=== PATIENT | male | born 1980 | race Caucasian/White ===

== ENCOUNTER 2022-04-11 12:07 | Inpatient (IN) ==
[2022-04-11] MEDS ORDERED: HYDROmorphone INJ 1 MG/ML SYRINGE IV STA (12:26)
[2022-04-11] MEDS ORDERED: KETOROLAC TROMETHAMINE 15 MG/ML VIAL IV ONE (12:26)
--- NOTE | 2022-04-11 12:30 | Emergency Department Note ---
Impression & Plan Lumbar radiculopathy, Back pain, Sciatica ED Provider Note NAME: BRIANDA WILSON AGE: 41 SEX: M : 1980 ARRIVES VIA: Walk-In INFORMANT: Patient ED PROVIDER(S): Joe Kevin DO CHIEF COMPLAINT: lower back pain HPI: Patient is a 41-year-old male who presents the ER for left lower back pain that radiates down the leg with numbness in the foot and left garcia. No symptoms started about 4 to 6 weeks ago. Has been significantly worsening specifically over the past week. He is done chiropractic therapy as well as steroid injections in the back and pain has been getting worse. He has noticed he is been getting increased weakness of the left lower leg. He had MRI this past Saturday as an outpatient at [facility]. He has been following with Andrea and Dr. Kvng card. They believe that these symptoms are likely secondary to L4. Denies any dysuria urgency or frequency. He is having trouble urinating. ROS: See above HPI for pertinent positives & negatives. A total of 10 systems reviewed and were otherwise negative. PAST MEDICAL HISTORY:See Below PAST SURGICAL HISTORY:See Below FAMILY HISTORY:See Below SOCIAL HISTORY:See Below HOME MEDICATIONS:See Below ALLERGIES:See Below VITALS:See Below PHYSICAL EXAMINATION: GENERAL: Sitting up in bed, alert, well appearing, well nourished, no distress, non-toxic EYE EXAM: normal conjunctiva. OROPHARYNX: mucous membranes are moist NECK: supple, no nuchal rigidity, no adenopathy, non-tender LUNGS: Clear to auscultation. Normal chest wall mechanics HEART: no murmurs, S1 normal and S2 normal ABDOMEN: abdomen soft, non-tender, normo-active bowel sounds, no masses, no rebound or guarding. BACK: Back is symmetrical on inspection and there is no deformity, no midline tenderness, no CVA tenderness. UPPER EXTREMITIES: upper extremities are grossly normal. LOWER EXTREMITIES: Flexion and extension of the hips, knees, ankles, and EHL 5/5 on the right. 4 out of 5 on the left.. Gross sensation is intact. DPs are 2/4 bilateral. Patellar and Achilles reflexes are 2/4 bilateral NEURO EXAM: Normal sensorium MEDICAL DECISION MAKING: Patient is a 41-year-old male who presents ER for back pain. IV was established blood was obtained. Labs show hemoglobin of 19 likely secondary to dehydration. BMP was unremarkable. COVID-negative. Imaging was not repeated as he just had an MRI which showed an L4 disc. Discussed with Dr. Ryder he is following this patient he recommends admission and he evaluate the patient at bedside. He was given IV Dilaudid. Patient was admitted for the OR. Triage Nursing notes reviewed. Limited review of prior medical records performed Vital Signs: reviewed and remarkable for HTN Differential diagnosis: Differential diagnoses includes but is not limited to lumbar radiculopathy, kidney stone, muscle strain, facture, cauda equina, mass, and disc herniation. ER treatment provided: See below Diagnostics interpreted by me: ECG: none Cardiac Monitoring: An order was placed for continuous cardiac monitoring. The monitor shows a rate of 65 with sinus rhythm. Laboratory studies: As stated above and show below. 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 Beliefs That Will Affect Care: None Current Living Situation: Other Current Living Situation Comment: Significant other (Iris) and son Other Information That Helps Us Care for You: No Feels Safe at Home: Yes Safety Concerns: Feels Safe At This Time Assistive Devices: None Allergies Allergies Allergy/AdvReac Type Severity Reaction Status Date / Time No Known Allergies Allergy Verified 04/11/22 13:43 Home Meds Home Medications Medication Instructions Recorded Confirmed prednisone 20 mg tablet 60 mg PO BID MDD 120 MG 04/08/22 04/11/22 Previous Rx's Medication Instructions Recorded oxycodone 5 mg tablet 5 mg PO Q4 PRN #20 tab 04/08/22 Results & Data (ED) Vital Signs Vital Signs - 24 hr 04/11/22 12:08 04/11/22 12:56 04/11/22 12:58 Temperature 37.1 C Temperature Source Temporal Artery Scan Pulse Rate 101 H Pulse Rate [Apical] 78 Pulse Rhythm [Apical] Regular Pulse Strength Normal Respiratory Rate 22 16 Respiratory Effort / Characteristics Non-Labored Spontaneous Respiratory Depth Normal Normal Blood Pressure 162/107 H Blood Pressure [Left Arm] 177/119 H Blood Pressure Mean 125 Blood Pressure Mean [Left Arm] 138 Blood Pressure Position Sitting Pulse Oximetry 96 94 95 Oxygen Delivery Method Room Air Room Air Room Air Sepsis Recent Fever Within 48 Hours No Sepsis New/Unexplained Change in Mental Status N/A Sepsis Action Taken by Nursing No Action Required Laboratory Data Result diagrams: 04/11/22 12:39 04/11/22 12:39 Lab Results 04/11/22 04/11/22 Range/Units 12:39 12:39 WBC 10.40 (4.8-10.8) K/uL RBC 5.70 (4.7-6.1) M/uL Hgb 19.3 H (14.0-18.0) g/dL Hct 54.1 H (42-52) % MCV 94.9 (80-100) fL MCH 33.9 (25-34) pg MCHC 35.7 (32-36) g/dL RDW Std Deviation 44.7 (36.4-46.3) fL RDW Coeff of Danielle 13.0 (11.5-14.5) % Plt Count 171 (130-400) K/uL MPV 11.7 H (7.4-10.4) fL Immature Gran % (Auto) 0.5 % Neut % (Auto) 68.7 % Lymph % (Auto) 19.4 % Heard % (Auto) 11.2 % Eos % (Auto) 0.1 % Baso % (Auto) 0.1 % Neut # (Auto) 7.15 H (1.4-6.5) K/uL Lymph # (Auto) 2.02 (1.2-3.4) K/uL Heard # (Auto) 1.16 H (0.11-0.59) K/uL Eos # (Auto) 0.01 (0-0.5) K/uL Baso # (Auto) 0.01 (0-0.2) K/uL Immature Gran # (Auto) 0.05 H (0.00-0.02) K/uL Sodium 136 (136-145) mmol/L Potassium 4.3 (3.5-5.1) mmol/L Chloride 101 (98-107) mmol/L Carbon Dioxide 30 (21-32) mmol/L Anion Gap 5 (3-11) BUN 30 H (6-23) mg/dl Creatinine 1.08 (0.6-1.4) mg/dl Est Cr Clr Drug Dosing 113.7 ml/min Est GFR ( Amer) 98.3 ml/min Est GFR (Non-Af Amer) 84.8 ml/min BUN/Creatinine Ratio 27.8 H (10-20) Glucose 90 (70-99(Fasting)) mg/dl Calcium 9.9 (8.5-10.1) mg/dl Administered Medications Hydromorphone HCl (Hydromorphone Inj 1 Mg/Ml Syringe) 1 mg IV Q3H PRN PRN Reason: severe pain (scale 7-10) Stop: 04/25/22 13:49 Last Admin: 04/11/22 14:23 Dose: 1 mg Documented by: [id number] Lactated Ringer's (Lr) 1,000 mls @ 75 mls/hr IV .[id number] SHANNON Stop: 05/11/22 13:59 Last Admin: 04/11/22 16:30 Dose: 75 mls/hr Documented by: [id number] Infusion: 04/11/22 16:30 Dose: 0 mls/hr Documented by: [id number] Admin: 04/11/22 14:22 Dose: 75 mls/hr Documented by: [id number] Acetaminophen ([facility]) 1,000 mg in 100 mls @ 400 mls/hr IV Q8H PRN PRN Reason: Pain Rating 1-3 & Pre PT Stop: 04/12/22 13:50 Last Infusion: 04/11/22 16:57 Dose: 0 mls/hr Documented by: [id number] Admin: 04/11/22 16:32 Dose: 400 mls/hr Documented by: [id number] Oxycodone HCl (Oxycodone Hcl Ir 5 Mg Tab (Immediate Release)) 5 - 10 mg PO Q4H PRN PRN Reason: mod to severe pain Stop: 04/25/22 13:49 Last Admin: 04/11/22 17:31 Dose: 10 mg Documented by: [id number] Discontinued Medications Hydromorphone HCl (Hydromorphone Inj 1 Mg/Ml Syringe) 1 mg IV NOW STA Stop: 04/11/22 12:27 Last Admin: 04/11/22 12:48 Dose: 1 mg Documented by: [id number] Ketorolac Tromethamine (Ketorolac Tromethamine 15 Mg/Ml Vial) 15 mg IV NOW ONE Stop: 04/11/22 12:27 Last Admin: 04/11/22 12:48 Dose: 15 mg Documented by: [id number] Discharge Plan Visit Data Chief Complaint: Back Injury/Pain Stated Complaint: LOW BACK PAIN ED Provider: Joe Kevin Discharge Problem: Lumbar radiculopathy, Back pain, Sciatica Patient Disposition: Admitted As Inpatient Discharge Instructions Interventions: ED Discharge Assessment Last Done: 04/11/22 15:14 Discharge Problem: Back pain Qualifiers: Back pain location: low back pain Chronicity: acute Back pain laterality: unspecified Sciatica presence: unspecified whether sciatica present Qualified Code(s): M54.50 - Low back pain, unspecified Sciatica Qualifiers: Laterality: left Qualified Code(s): M54.32 - Sciatica, left side
[2022-04-11 13:13] LABS: Basophils # (auto) 0.01 K/uL (0-0.2); Basophils % (auto) 0.1 %; Eosinophils # (auto) 0.01 K/uL (0-0.5); Eosinophils % (auto) 0.1 %; Hematocrit (blood only) 54.1 % (42-52); Hemoglobin 19.3 g/dL (14.0-18.0); Immature Granulocytes # (auto) 0.05 K/uL (0.00-0.02); Immature Granulocytes % (auto) 0.5 %; Lymphocytes # (auto) 2.02 K/uL (1.2-3.4); Lymphocytes % (auto) 19.4 %; Mean Corpuscular Hemoglobin 33.9 pg (25-34); Mean Corpuscular Hgb Conc 35.7 g/dL (32-36); Mean Corpuscular Volume 94.9 fL (80-100); Mean Platelet Volume 11.7 fL (7.4-10.4); Monocytes # (auto) 1.16 K/uL (0.11-0.59); Monocytes % (auto) 11.2 %; Neutrophils # (auto) 7.15 K/uL (1.4-6.5); Neutrophils % (auto) 68.7 %; Platelet Count 171 K/uL (130-400); RDW Standard Deviation 44.7 fL (36.4-46.3)
[2022-04-11 13:28] LABS: BUN Creatinine Ratio 27.8 (10-20); Calcium 9.9 mg/dl (8.5-10.1); Creatinine Clr Calc Pharmacy 113.7 ml/min; Est GFR (African American) 98.3 ml/min; Est GFR (Non-African American) 84.8 ml/min; Potassium 4.3 mmol/L (3.5-5.1)
[2022-04-11] MEDS ORDERED: ONDANSETRON 4 MG OD TAB PO PRN (13:50)
[2022-04-11] MEDS ORDERED: HYDROmorphone INJ 0.5 MG/0.5 ML SYR IV PRN (13:50)
[2022-04-11] MEDS ORDERED: LORazepam 2 MG/1 ML VIAL IV PRN (13:50)
[2022-04-11] MEDS ORDERED: oxyCODONE HCL IR 5 MG TAB (IMMEDIATE RELEASE) PO PRN (13:50)
[2022-04-11] MEDS ORDERED: MAGNESIUM HYDROXIDE SUSP 30 ML UDC PO PRN (13:50)
[2022-04-11] MEDS ORDERED: traMADol HCL 50 MG TABLET PO PRN (13:50)
[2022-04-11] MEDS ORDERED: ACETAMINOPHEN 500 MG TAB PO PRN (13:50)
[2022-04-11] MEDS ORDERED: METOCLOPRAMIDE HCL INJ 5 MG/ML 2 ML VIAL IV PRN (13:50)
[2022-04-11] MEDS ORDERED: PROMETHAZINE HCL 12.5 MG in SODIUM CHLORIDE 0.9% 50 ML IV PRN (13:50)
[2022-04-11] MEDS ORDERED: diphenhydrAMINE Capsule 25 MG CAP PO PRN (13:50)
[2022-04-11] MEDS ORDERED: ONDANSETRON INJ 2 MG/ML 2 ML VIAL IV PRN (13:50)
[2022-04-11] MEDS ORDERED: NALOXONE HCL 0.4 MG/1 ML VIAL/CARP IV PRN (13:50)
[2022-04-11] MEDS ORDERED: ACETAMINOPHEN 1,000 MG/100 ML VIAL IV PRN (13:50)
--- NOTE | 2022-04-11 14:01 | History & Physical Report ---
Date of Service April 11, 2022 Assessment & Plan (1) Lumbar radiculopathy: Plan: Is a 41-year-old gentleman we are admitting to Dr. Ryder service. He has had a progressive decline over the past several days with worsening bilateral lower extremity pain and weakness. He has neurological deficit affecting the left lower extremity. He notes new urinary retention. We will admit him for pain control and make him n.p.o. after midnight. Plan is to proceed with surgical intervention in the form of posterior lumbar decompression and instrumented fusion of L4-5, L5-S1. Risk, benefits, pros cons and alternatives were in detail. Patient wants to proceed with above-mentioned planning as soon as possible. History of Present Illness Chief Complaint: Low back pain, left greater than right lower extremity pain and weakness, urinary retention Primary Care Provider: Emigdio Argueta MD Is a pleasant 41-year-old gentleman who has been under care for the past week or so. He has had ongoing symptoms for the past 4 to 6 weeks but really declined over the past 10 days. He was in the emergency room 4 days ago for jennie e complaints. He has had multiple rounds of oral steroids which provide very modest relief. He is Ghassan Aleman PA-C one of our orthospine PAs last week with subsequent follow-up today ago to review his MRI. 2 days ago he received his first lumbar injection by Dr. Quesada. He notes no improvement. He is also seen Dr. Mccord last week again no real improvement. Patient was evaluated by ghassan vasquez and Dr. Quesada today and decided to present to the ER for surgical consultation. Patient currently has pain his lower back going down both legs along the posterior lateral thighs, posterior lateral calf to his feet. Left lower extremity is worse than right. He has been ambling independently. He has been on a couple rounds of steroids. When he was in the ER 3 days ago they gave him Oxy IR which he has been taking. He notes some urinary retention but no perineal numbness. Allergies Allergy/AdvReac Type Severity Reaction Status Date / Time No Known Allergies Allergy Verified 04/11/22 13:43 Home Medications Medication Instructions Recorded Confirmed Type oxycodone 5 mg tablet 5 mg PO Q4 PRN #20 tab 04/08/22 04/11/22 Rx prednisone 20 mg tablet 60 mg PO BID MDD 120 MG 04/08/22 04/11/22 History Past Med/Surg History Medical History No known health problems Surgical History History of tooth extraction Social History Smoking Status: Never smoker Second Hand Exposure: No; Do You Dip or Chew Tobacco: No; Tobacco Cessation Education Requested by Patient: No Hx Alcohol Use: No Hx Substance Use: No Preferred Language: Arabic Communication Ability: Effective Ramp Lead Required: No Beliefs That Will Affect Care: None Current Living Situation: Other Current Living Situation Comment: Significant other (Iris) and son Other Information That Helps Us Care for You: No Feels Safe at Home: Yes Safety Concerns: Feels Safe At This Time Assistive Devices: None Review of Systems Review of Systems: All systems reviewed & are unremarkable except as noted in HPI & below Physical Exam Physical Exam: Patient seen in the ER b 6 Alert and oriented x3 Moderately uncomfortable but cooperative with exam Has difficulty standing up due to pain 4 out of 5 left EHL and dorsiflexion compared to 5/5 right EHL and dorsiflexion Breakaway weakness over the left quadricep, strength intact on the right Positive straight leg raise on the left Constitutional: WD/WN, vitals as above Eyes: normal visual kelly by confrontation ENMT: external ear and nose normal, oropharynx normal Neck: normal visual inspection Respiratory: normal respiratory effort Cardiovascular: Extremities: normal capillary refill Gastrointestinal (Abdomen): Inspection/Auscultation: abdomen normal to inspection Musculoskeletal: Spine: + straight leg raise positive Extremities: + abnormal strength Skin: no rashes, warm and dry Neurologic: normal touch/pain/proprioception, moves all extremities and + focal motor deficit Psychiatric: A+Ox3, euthymic affect Eye Contact: good eye contact Speech: normal rate/rhythm/volume of speech Results & Data Results & Data ([facility]) Vital Signs (Past 12 Hours) Vital Signs Temp Pulse Pulse Resp BP BP Pulse Ox 04/11/22 12:58 95 04/11/22 12:56 78 16 177/119 H 94 04/11/22 12:08 37.1 C 101 H 22 162/107 H 96 Code Status & VTE Plan VTE Prophylaxis Plan VTE Prophylaxis will be ordered: Yes
[2022-04-11] MEDS: LACTATED RINGER'S 1,000 ML IV SCH ×2 (14:22→16:30)
[2022-04-11] MEDS: HYDROmorphone INJ 1 MG/ML SYRINGE IV PRN ×2 (14:23→22:31)
[2022-04-11] MEDS ORDERED: DOCUSATE SODIUM/SENNA 50/8.6MG TAB PO SCH (21:00)
[2022-04-12] MEDS: HYDROmorphone INJ 1 MG/ML SYRINGE IV PRN ×7 (01:50→16:04)
[2022-04-12] MEDS: LACTATED RINGER'S 1,000 ML IV SCH ×3 (04:52→23:15)
[2022-04-12] MEDS ORDERED: ceFAZolin 2000MG 2,000 MG/15 ML SYR IV SCH (06:00)
[2022-04-12 06:39] LABS: Appearance Urine Cloudy (Clear); Bacteria Urine Automated Negative (Negative); Bilirubin Urine Negative (Negative); Blood Urine Negative (Negative); Color Urine Yellow; Epithelial Cell Urine Auto 0-5 /lpf (0-5); Glucose Urine UA Negative (Negative); Ketones Urine Negative (Negative); Leukocyte Esterase Urine Negative (Negative); Nitrite Urine Negative (Negative); Specific Gravity Urine 1.023 (1.000-1.030); Urobilinogen Urine Negative (Negative); pH Urine 7.5 (4.5-7.5)
[2022-04-12 06:40] LABS: Protein Urine 1+ (Negative)
--- NOTE | 2022-04-12 06:56 | Anesthesiology Consultation ---
Date of Service April 12, 2022 Assessment & Plan (1) Encounter for pre-operative examination: Chart Review Chart Review: carpentry supervisor initiated History Surgery Operation Date: 04/12/22 12:30 Proposed Procedures p L4-L5 and L5-S1 Posterior Lumbar Decompression and Fusion - Zak Ryder DO Height/Weight Height: 6 ft 2 in Weight: 100 kg Allergies Allergy/AdvReac Type Severity Reaction Status Date / Time No Known Allergies Allergy Verified 04/11/22 13:43 Medications Home Medications Medication Instructions Recorded Confirmed Last Taken oxycodone 5 mg tablet 5 mg PO Q4 PRN #20 tab 04/08/22 04/11/22 04/11/22 10:00 10 mg prednisone 20 mg tablet 60 mg PO BID MDD 120 MG 04/08/22 04/11/22 04/10/22 Active Medications Generic Name Dose Route Start Last Admin Trade Name Freq PRN Reason Stop Dose Admin Hydromorphone HCl 1 mg 04/11/22 13:50 04/12/22 04:49 Hydromorphone Inj 1 Mg/Ml Syringe IV 04/25/22 13:49 1 mg Q3H PRN Administration severe pain (scale 7-10) Lactated Ringer's 1,000 mls @ 75 mls/hr 04/11/22 14:00 04/12/22 04:52 Lr IV 05/11/22 13:59 75 mls/hr .[id number] SHANNON Administration Acetaminophen 1,000 mg in 100 mls @ 400 mls/hr 04/11/22 13:50 04/11/22 16:57 Ofirmev IV 04/12/22 13:50 Infused Q8H PRN Infusion Pain Rating 1-3 & Pre PT Oxycodone HCl 5 - 10 mg 04/11/22 13:50 04/11/22 17:31 Oxycodone Hcl Ir 5 Mg Tab (Immediate Release) PO 04/25/22 13:49 10 mg Q4H PRN Administration mod to severe pain Senna/Docusate Sodium 2 tab 04/11/22 21:00 04/11/22 22:31 Docusate Sodium/Senna 50/8.6mg Tab PO 05/11/22 20:59 2 tab HS SHANNON Administration NPO Date Last Intake of Fluids: 04/11/22 Time Last Intake of Fluids: 23:30 Past Medical History Medical History No known health problems Past Surgical History Surgical History History of tooth extraction Social History Smoking Status: Never smoker Do You Dip or Chew Tobacco: No Hx Alcohol Use: No Hx Substance Use: No substance use type: does not use Physical Exam Vital Signs Last Vital Signs Temp 97.7 F 04/11/22 22:11 Pulse 57 L 04/11/22 22:11 Resp 18 04/11/22 22:11 BP 161/82 H 04/11/22 22:11 Pulse Ox 95 04/11/22 22:11 Testing Laboratory Results 04/11/22 12:39 04/11/22 12:39 Urine Color Yellow 04/12/22 05:55 Urine Appearance Cloudy (Clear) A 04/12/22 05:55 Urine pH 7.5 (4.5-7.5) 04/12/22 05:55 Ur Specific [place] 1.023 (1.000-1.030) 04/12/22 05:55 Urine Protein 1+ (Negative) H 04/12/22 05:55 Urine Glucose (UA) Negative (Negative) 04/12/22 05:55 Urine Ketones Negative (Negative) 04/12/22 05:55 Urine Nitrite Negative (Negative) 04/12/22 05:55 Ur Leukocyte Esterase Negative (Negative) 04/12/22 05:55 Urine WBC (Auto) 1-5 /hpf (0-5) 04/12/22 05:55 Urine RBC (Auto) 5-10 /hpf (0-4) H 04/12/22 05:55 U Hyaline Cast (Auto) 1-5 /lpf (0-5) 04/12/22 05:55 U Epithel Cells (Auto) 0-5 /lpf (0-5) 04/12/22 05:55 Urine Bacteria (Auto) Negative (Negative) 04/12/22 05:55 Laboratory Tests 04/11/22 Unknown SARS-CoV-2, RNA, NAAT NEGATIVE
[2022-04-12] MEDS ORDERED: ONDANSETRON INJ 2 MG/ML 2 ML VIAL IV PRN ×2 (12:16→17:00)
[2022-04-12] MEDS ORDERED: ePHEDrine sulfate 50 MG/ML AMP IV PRN (12:16)
[2022-04-12] MEDS ORDERED: ATROPINE SULFATE 0.1 MG/ML 10ML SYR IV PRN (12:16)
[2022-04-12] MEDS ORDERED: ROCURONIUM BROMIDE 10 MG/ML 5 ML VIAL IV ONE ×10 (12:26→14:48)
[2022-04-12] MEDS ORDERED: MIDAZOLAM HCL 1 MG/ML 2ML VIAL ONE (12:26)
[2022-04-12] MEDS ORDERED: PROPOFOL IV EMULSION 10 MG/ML 20 ML VIAL IV ONE ×2 (12:26→13:22)
[2022-04-12] MEDS ORDERED: fentaNYL citrate 100 MCG/2 ML VIAL ONE (12:26)
--- NOTE | 2022-04-12 12:33 | History & Physical Bridge Note ---
Date of Service April 12, 2022 History & Physical Bridge Note I have examined the patient, reviewed the History & Physical and in the interval since the performance of the History & Physical I have noted the following changes of clinical significance: no changes noted Lumbar decompression and fusion L4-S1
[2022-04-12] MEDS ORDERED: LIDOCAINE 2% 2 ML VIAL/AMP(20MG/ML) INFIL ONE ×3 (12:35→12:48)
[2022-04-12] MEDS ORDERED: ONDANSETRON INJ 2 MG/ML 2 ML VIAL ONE (12:35)
[2022-04-12] MEDS ORDERED: DEXAMETHASONE SOD INJ 4 MG/ML VIAL ONE ×3 (12:35→12:48)
[2022-04-12] MEDS ORDERED: EPINEPHrine INJ 1 MG/ML AMP ONE (12:46)
[2022-04-12] MEDS ORDERED: BUPIVACAINE 0.5 % 5 MG/1 ML MPF 30ML VIAL ONE (12:46)
[2022-04-12] MEDS ORDERED: ceFAZolin 330 MG/ML 1 GM VIAL ONE (12:46)
[2022-04-12] MEDS ORDERED: REMIFENTANIL HCL 1 MG VIAL ONE (12:49)
[2022-04-12] MEDS ORDERED: KETAMINE 50 MG/5 ML SYRINGE ONE (12:50)
[2022-04-12] MEDS ORDERED: ePHEDrine sulfate 50 MG/ML AMP ONE (13:57)
[2022-04-12] MEDS ORDERED: PHENYLEPHRINE HCL 10 MG/ML VIAL ONE (13:57)
[2022-04-12] MEDS ORDERED: FLOSEAL HEMOSTATIC MATRIX 10ML TOP ONE (14:02)
[2022-04-12] MEDS ORDERED: GLYCOPYRROLATE 0.2 MG/ML VIAL ONE (14:46)
[2022-04-12] MEDS ORDERED: NEOSTIGMINE METHYLSULFATE 1 MG/ML 10ML VIAL ONE (14:46)
--- NOTE | 2022-04-12 14:56 | Operative Report ---
Post Operative Report Pre & Post Diagnosis Operation Date: 04/12/22 12:30 Pre-Op Diagnosis: Low back pain, left greater than right lower extremity pain and weakness, urinary retention Post-Op Diagnosis: Low back pain, left greater than right lower extremity pain and weakness, urinary retention I identified the patient and participated in the time-out.: Yes Procedure Operation Date: 04/12/22 12:30 Actual Procedures #1 lumbar decompression with bilateral medial facetectomies and foraminotomies L3-L4 L4-5 and L5-S1. #2 posterior spinal fusion L4-L5 L5-S1. #3 placement posterior instrumentation L4-L5 L5-S1. #4 interbody fusion L4-L5 L5-S1. #5 placement of Spira 15 x 26 mm cage at L4-5 and 13 x 26 mm cage L5-S1. #6 placement locally harvested morselized autograft in the posterior gutters. #7 placement of I factor combined with V toss in the posterior lateral gutters and interbody spaces. Surgeon Zak Ryder, DO Supervisor [place] Veronica Estrada Estimated Blood Loss 100 Findings Consistent with Post-Op Diagnosis Specimens None Indications This is a 41-year-old male who presents with steady decline in status with severe bilateral leg pain left greater than right creating radiculopathy and urinary tension. In light of his presentation and significant findings here for urgent decompression fusion. Description of Procedure Patient was met with identified informed consent obtained. Patient was was then taken to the operative suite underwent intubation placed in a prone position the Severiano table atop the Singh frame. All bony prominences well-padded eyes inspected to ensure no external pressure placed upon them. This point the lumbar spine was prepped and draped in the normal sterile fashion. Sharp dissection with the assistance of Bovie cautery was performed down to and exposing the lamina and transverse processes of L4-5 and sacral ala bilaterally. From caudal to cephalad fashion complete laminectomy of L5 L4 partial laminectomy L3 was performed including bilateral medial facetectomies and foraminotomies addressing all neural compression and severe foraminal disease. Evidence of massive disc herniation particular on the left L4-L5 level was notified with significant cord treatment of the exiting nerve and traversing nerve roots. It was removed in its entirety. Pedicle screws then placed in L4- L5 and S1 levels bilaterally with assistance of fluoroscopy and the proper sized hussein placed. By way of a transforaminal approach and left complete discectomy of L5-S1 was performed endplates curetted to subcortical bone bone and a 13 x 26 mm spiral cage filled with I factor tapped in position. Then proceeded to L for L5 again by way of a transforaminal approach and left complete discectomy was performed endplates curetted to subcortical bleeding bone and a 15 x 26 mm spiral cage filled with I factor tapped in position. The rods were then co mpressed locked in final position bilaterally. The transverse processes of L4- L5 and sacral ala burred to subcortically bone. I factor combined with V toss and locally harvested morselized autograft was placed in the posterior gutters. 15 round ALEKSANDR drain inserted. The incision was then closed with 1 Vicryl the fascia 2-0 Vicryl subcutaneously and 4 Monocryl for final skin closure. Steri- Strip sterile dressings placed. Patient waken taken PACU stable condition. Please note spinal cord monitoring was utilized at the procedure no changes noted. Lastly Veronica Estrada was present out the entire surgery involved the patient positioning complex portions of the surgery and final skin closure. I attest to the content of the Intraoperative Record and any orders documented t herein. Any exceptions are noted below.
[2022-04-12] MEDS: fentaNYL citrate 100 MCG/2 ML VIAL IV PRN ×4 (15:25→15:42)
--- NOTE | 2022-04-12 15:29 | Fluoroscopy Report ---
FL lumbar spine 2-3V CLINICAL HISTORY: L4-L5, L5-S1 Decompression/fusion COMPARISON STUDY: None. FLUOROSCOPY TIME: 25 seconds. FINDINGS: 2 fluoroscopic spot images of the lumbar spine demonstrate posterior decompression fusion f rom L4 through S1 with pedicle screws and rods. The hardware appears intact. Disc spacers are placed. IMPRESSION: Fluoroscopic assistance provided for L4-S1 posterior decompression and fusion ACT 112: Negative or not required by law. Electronically signed by: Gianfranco Randle M.D. 04/12/2022 3:28 PM
--- NOTE | 2022-04-12 15:59 | Anesthesiology Progress Note ---
Date of Service April 12, 2022 Anesthesia Post Procedure Vital Signs Vital Signs: Temp Pulse Pulse Resp BP BP Pulse Ox 04/12/22 15:55 49 L 12 144/76 H 94 04/12/22 15:45 45 L 13 145/80 H 97 04/12/22 15:35 48 L 11 L 153/80 H 98 04/12/22 15:25 56 L 18 150/81 H 97 04/12/22 15:15 98.2 F 56 L 16 148/88 H 97 04/12/22 15:00 97.9 F 92 H 18 181/82 H 94 04/12/22 11:53 98.8 F 85 16 160/99 H 94 04/12/22 07:37 97.5 F L 59 L 16 161/94 H 97 04/11/22 22:11 97.7 F 57 L 18 161/82 H 95 Pain Intensity Back: Pain Intensity: 6 Transfer of Care Handoff Completed per policy Notes Mental Status: alert / awake / arousable and participated in evaluation Patient Amnestic to Procedure: Yes Nausea / Vomiting: adequately controlled Pain: adequately controlled Airway Patency, RR, SpO2: stable & adequate BP & HR: stable & adequate Hydration State: stable & adequate Anesthetic Complications: no major complications apparent and Pt Satisfied with anesthetic care
[2022-04-12] MEDS ORDERED: SOD PHOSPHATE/SOD BIPHOSPHATE ENEMA 132 ML BTL PR PRN (17:00)
[2022-04-12] MEDS ORDERED: FAMOTIDINE 20 MG TAB PO PRN (17:00)
[2022-04-12] MEDS ORDERED: ONDANSETRON 4 MG OD TAB PO PRN (17:00)
[2022-04-12] MEDS ORDERED: HYDROmorphone INJ 1 MG/ML SYRINGE IV PRN (17:00)
[2022-04-12] MEDS ORDERED: LORazepam 2 MG/1 ML VIAL IV PRN (17:00)
[2022-04-12] MEDS ORDERED: hydrOXYzine HCl 25 MG TAB PO PRN (17:00)
[2022-04-12] MEDS ORDERED: ACETAMINOPHEN 500 MG TAB PO PRN (17:00)
[2022-04-12] MEDS ORDERED: DO NOT ADMINISTER FLU VACCINE PRN (17:00)
[2022-04-12] MEDS ORDERED: ACETAMINOPHEN 1,000 MG/100 ML VIAL IV PRN (17:00)
[2022-04-12] MEDS ORDERED: diphenhydrAMINE Capsule 25 MG CAP PO PRN (17:00)
[2022-04-12] MEDS ORDERED: HYDROmorphone INJ 0.5 MG/0.5 ML SYR IV PRN (17:00)
[2022-04-12] MEDS ORDERED: DO NOT ADMINISTER PNEUMOCOCCAL VACCINE PRN (17:00)
[2022-04-12] MEDS ORDERED: NALOXONE HCL 0.4 MG/1 ML VIAL/CARP IV PRN (17:00)
[2022-04-12] MEDS ORDERED: MAGNESIUM HYDROXIDE SUSP 30 ML UDC PO PRN (17:00)
[2022-04-12] MEDS ORDERED: bisacodyL 10 MG SUPP PR PRN (17:00)
[2022-04-12] MEDS ORDERED: PROMETHAZINE HCL 12.5 MG in SODIUM CHLORIDE 0.9% 50 ML IV PRN (17:00)
[2022-04-12] MEDS ORDERED: ALUMINUM/MAGNESIUM SUSP 30 ML UDC PO PRN (17:00)
[2022-04-12] MEDS ORDERED: METOCLOPRAMIDE HCL INJ 5 MG/ML 2 ML VIAL IV PRN (17:00)
[2022-04-12] MEDS ORDERED: LORazepam 0.5 MG TAB PO PRN (17:00)
[2022-04-12] MEDS: oxyCODONE HCL IR 5 MG TAB (IMMEDIATE RELEASE) PO PRN ×2 (17:08→23:15)
[2022-04-12] MEDS: DOCUSATE SODIUM/SENNA 50/8.6MG TAB PO SCH (20:04)
[2022-04-12] MEDS: ceFAZolin 2000MG 2,000 MG/15 ML SYR IV SCH (20:43)
[2022-04-13] MEDS: oxyCODONE HCL IR 5 MG TAB (IMMEDIATE RELEASE) PO PRN ×4 (03:44→22:01)
[2022-04-13] MEDS: LACTATED RINGER'S 1,000 ML IV SCH ×2 (05:40→11:45)
[2022-04-13] MEDS: POLYETHYLENE (MIRALAX) 17 GM PACK PO SCH ×4 (05:40→22:01)
[2022-04-13] MEDS: ceFAZolin 2000MG 2,000 MG/15 ML SYR IV SCH (05:41)
[2022-04-13 07:20] LABS: Eosinophils # (auto) 0.04 K/uL (0-0.5); Eosinophils % (auto) 0.3 %; Hematocrit (blood only) 46.6 % (42-52); Immature Granulocytes # (auto) 0.04 K/uL (0.00-0.02); Immature Granulocytes % (auto) 0.3 %; Lymphocytes # (auto) 1.25 K/uL (1.2-3.4); Lymphocytes % (auto) 10.8 %; Mean Corpuscular Hemoglobin 32.2 pg (25-34); Mean Corpuscular Hgb Conc 34.3 g/dL (32-36); Mean Corpuscular Volume 93.8 fL (80-100); Mean Platelet Volume 10.7 fL (7.4-10.4); Monocytes # (auto) 0.99 K/uL (0.11-0.59); Monocytes % (auto) 8.5 %; Neutrophils # (auto) 9.27 K/uL (1.4-6.5); Neutrophils % (auto) 80.1 %; Platelet Count 164 K/uL (130-400); RDW Coefficient of Variation 13.3 % (11.5-14.5); RDW Standard Deviation 45.4 fL (36.4-46.3); Red Blood Count 4.97 M/uL (4.7-6.1); White Blood Count 11.59 K/uL (4.8-10.8)
[2022-04-13 07:40] LABS: BUN Creatinine Ratio 22.8 (10-20); Calcium 8.8 mg/dl (8.5-10.1); Creatinine Clr Calc Pharmacy 107.7 ml/min; Est GFR (African American) 92.1 ml/min; Est GFR (Non-African American) 79.4 ml/min; Potassium 4.1 mmol/L (3.5-5.1)
[2022-04-13] MEDS: dexAMETHasone 6 MG in SYRINGE 0 ML IV SCH (07:54)
[2022-04-13] MEDS: traMADol HCL 50 MG TABLET PO PRN ×2 (10:53→18:00)
--- NOTE | 2022-04-13 13:22 | Orthopedic Progress Note ---
Date of Service April 13, 2022 Assessment & Plan (1) Lumbar radiculopathy: Plan: This time we will continue physical therapy monitor his ALEKSANDR operatively discharge home later after this weekend. Admission and Anticipated Discharge Date Admission Date: April 12, 2022 Subjective Patient's back pain is controlled leg symptoms markedly improved Physical Exam Physical Exam: On exam is in the chair at the bedside. Is good strength testing. Appears much more comfortable. Results & Data ([facility]) Vital Signs (Past 12 Hours) Vital Signs Temp Pulse Resp BP Pulse Ox 04/13/22 11:03 36.6 C 64 18 149/88 H 97 04/13/22 07:52 36.5 C 61 16 156/81 H 96 04/13/22 03:40 36.5 C 61 16 152/75 H 94
[2022-04-13] MEDS: CYCLOBENZAPRINE HCL 10 MG TAB PO PRN (15:03)
[2022-04-13] MEDS: DOCUSATE SODIUM/SENNA 50/8.6MG TAB PO SCH (20:31)
[2022-04-14] MEDS: POLYETHYLENE (MIRALAX) 17 GM PACK PO SCH ×2 (06:11→12:15)
[2022-04-14] MEDS: dexAMETHasone 6 MG in SYRINGE 0 ML IV SCH (09:10)
[2022-04-14] MEDS: CYCLOBENZAPRINE HCL 10 MG TAB PO PRN (10:15)
--- NOTE | 2022-04-14 10:25 | Discharge Summary ---
Date of Service April 14, 2022 Admission HPI Per Admitting Provider Is a pleasant 41-year-old gentleman who has been under care for the past week or so. He has had ongoing symptoms for the past 4 to 6 weeks but really declined over the past 10 days. He was in the emergency room 4 days ago for same complaints. He has had multiple rounds of oral steroids which provide very modest relief. He is Ghassan Aleamn PA-C one of our orthospine PAs last week with subsequent follow-up today ago to review his MRI. 2 days ago he received his first lumbar injection by Dr. Quesada. He notes no improvement. He is also seen Dr. Mccord last week again no real improvement. Patient was evaluated by ghassan vasquez and Dr. Quesada today and decided to present to the ER for surgical consultation. Patient currently has pain his lower back going down both legs along the posterior lateral thighs, posterior lateral calf to his feet. Left lower extremity is worse than right. He has been ambling independently. He has been on a couple rounds of steroids. When he was in the ER 3 days ago they gave him Oxy IR which he has been taking. He notes some urinary retention but no perineal numbness. Principal Diagnosis Lumbar disc herniation with radiculopathy Discharge Data Allergies Allergy/AdvReac Type Severity Reaction Status Date / Time No Known Allergies Allergy Verified 04/11/22 13:43 Consultations 04/11/22 12:40 Consult Orthopedic Surgery Stat Procedures Performed Operation Date: 04/12/22 12:30 Actual Procedures p L4-L5 and L5-S1 Posterior Lumbar Decompression and Fusion(Not Applicable) - Zak Ryder DO Ordered Studies 04/12/22 [place] lumbar spine 2-3V Routine Hospital Course (1) Lumbar radiculopathy: Patient was admitted with severe back and left leg pain with inability to ambulate. He underwent emergent decompression fusion the following day. He tolerates well was taken to orthopedic for postoperative. Postop day 1 he was up and ambulating leg symptoms markedly improved and postop day #2 pain was well controlled excellent strength testing ALEKSANDR drain decreased probably. Separately discharged home. Discharge orders and instructions from the chart for further review. Total Time Total Time Spent Total Time Spent (In Minutes): 20 minutes Discharge Plan Discharge Items Patient Disposition: Home - Self-Care Reason For Visit: INTRACTABLE BACK AND L>R LE PAIN; HNP Discharge Diagnosis: Lumbar spinal stenosis with disc herniation and radiculopathy Activity: As commented below Non-emergency contact: Primary Care Provider Call non-emergency contact if: you have any medication questions Follow-up/Referrals: Emigdio Argueta MD [Primary Care Provider] - Diet: Regular Addtl Attending Provider Instructions: ACTIVITY RECOMMENDATIONS: SELF CARE INSTRUCTIONS AFTER THORACIC/LUMBAR FUSIONS 1. You may walk to your tolerance. It is good exercise for your legs and back. Expect some back and intermittent leg aches and pains. 2. You may perform "counter-top" level activities (make a sandwich, kraig with a project, etc.). 3. No bending or lifting of more than 10 pounds or back twisting of any nature (roll like a log when turning in bed). 4. You may ride in a car for 20-30 minutes at a time. No driving until after your first visit with your doctor. 5. Frequent changes of position and restricting sitting to 30 minutes at a time will help limit the amount of back spasms and stiffness you may experience. 6. You may discontinue the use of ambulatory aids (cane, crutches, etc.) once your strength and confidence allow. 7. You may returned goods inspector the shower and let water strike your incision when you arrive home at least once daily. Do not take a tub bath, sit in a hot tub or go into a swimming pool until after your first recheck in the office. SPECIAL CARE INSTRUCTIONS: VERY IMPORTANT TO READ AND REVIEW A. Your surgical incision has been closed with a cosmetic suture under the skin that will dissolve in about 6 weeks. In 14 days, you can use a pair of clean scissors and cut the suture that is left outside of the skin at the ends of your incision. 1. The small skin tapes can be removed 7 days after surgery if they have not fallen off by that point. 2. You may keep the wound open to air as much as possible to promote healing after post-op day number 5 unless told otherwise by your doctor. 3. If you think the wound looks like it is becoming infected (redness or worsening drainage) and/or you are experiencing fever, chill or worsening back pain and muscle spasms, contact the office so that we may evaluate you as soon as possible. B. Complications are uncommon, but please contact us if you have any signs or symptoms of: 1. wound infection (fever higher than 102.5 degrees F, redness, separation of wound, drainage, or increasing pain from the incision) 2. blood clots in legs (pain, swelling, redness and warmth in legs) 3. urinary tract infection (fever higher than 102.5 degrees F, burning upon urination or increased frequency of urination) 4. nerve problems (inability to walk on your toes or heels, numbness, loss of bowel or bladder control) 5. any other symptoms that concern you C. Please call the office at if you have any concerns or questions about your operation or recovery. D. No smoking! Smoking drastically decreases the chance of a solid fusion. E. Do not take any anti-inflammatory medications (Indocin, Advil, Motrin, Aspirin, Naprosyn, etc.) as these may inhibit the chance of a solid fusion. Tylenol is okay to take for pain. MANAGING PAIN AFTER SPINAL SURGERY 1. Narcotic medication is intended for short-term use and will be provided for surgical pain. Surgical pain usually lasts for a period of 4-6 weeks. Narcotic medication includes Percocet, Vicodin, Darvocet, Tylenol #3 or Lortab. 2. Longer-term pain is more appropriately treated with non-narcotic medication such as Tylenol ES. 3. Muscle spasm is not appropriately treated with narcotics. Muscle relaxers such as Soma, Flexeril or Skelaxin can be used along with Tylenol ES. 4. Remember that we all live with some "aches and pains". This is not unusual or uncommon after an injury or as we get older. a. Back pain is expected and may include muscle spasms for 4 to 6 weeks after surgery. The pain should gradually improve. If the pain worsens for no apparent reason, please contact the office. b. Intermittent leg pain may also be experienced and should not be concerned about unless it worsens for no apparent reason. If so, please contact the office. 5. We will provide appropriate medication within the normal guidelines of their prescribed use. We will also be very cautious and aware of potential abuse and extended duration of patients' medication needs. a. Pain medications are for your comfort and to assist with sleep and rest so that the tissue can heal. They are not provided in order to return to normal activity and should not be used through the day. To do so or worsening pain at night can result from ongoing tissue damage and development of tolerance to the prescribed medicine. 6. Please allow 2-3 days to process refills. Prescriptions will not be mailed but must be picked up at the office. FOLLOW UP VISIT: Keep your scheduled follow-up appointment. Any questions, please call the office at . Pending Studies at Discharge: No Stand-Alone Forms: My [facility], Smoking Cessation Medications and DC Order Prescriptions: New tramadol 50 mg tablet 50 mg PO Q6H PRN (Reason: pain, moderate) Qty: 30 RF: 0 oxycodone 5 mg tablet 5 mg PO Q6H PRN (Reason: pain, severe) Qty: 30 RF: 0 Continued oxycodone 5 mg tablet 5 mg PO Q4 PRN (Reason: pain) Qty: 20 RF: 0 Discontinued prednisone 20 mg tablet 60 mg PO BID MDD 120 MG RF: 0 Discharge Orders: Discharge Order (Routine); Ordered 04/14/22 Ordered By: Zak Ryder Admission Data Admit Date/Time: 04/12/22 14:59 Attending Provider: Zak Ryder Admit Provider: Zak Ryder Primary Care Provider: Emigdio Argueta Other Providers: Zak yRder
== END 2022-04-14 13:22 | disposition home or self-care (01) | DRG 455 ==
LOC: 3E 12:07 → ED 12:07 → 3E 15:14
DX: R26.2 Difficulty in walking, not elsewhere classified; Z79.52 Long term (current) use of systemic steroids; M51.16 Intervertebral disc disorders with radiculopathy, lumbar region; E86.0 Dehydration; R33.9 Retention of urine, unspecified; Z20.822 Contact with and (suspected) exposure to COVID-19